=== PATIENT | female | born 1960 | race Caucasian/White ===

== ENCOUNTER 2020-01-21 19:01 | Emergency (ER) | payer OTHER ==
[~2020-01-21] VITALS: Ht 157.5 cm; Wt 68.0 kg
[2020-01-21] MEDS ORDERED: PROCHLORPERAZINE EDISYLATE 10 MG/2 ML VIAL ONE (19:27)
[2020-01-21] MEDS ORDERED: MECLIZINE HCL 25 MG TABLET ONE (19:28)
[2020-01-21 19:29] LABS: BASOPHILS % (AUTO) 0.4 % (0.0-2.0); EOSINOPHILS % (AUTO) 2.1 % (0.0-6.0); HEMATOCRIT 42 % (33-45); HEMOGLOBIN 13.9 g/dL (11.5-14.8); LYMPHOCYTES % (AUTO) 21.8 % (20.0-44.0); MEAN CORPUSCULAR HGB CONC 33 g/dl (31.0-36.0); MEAN CORPUSCULAR VOLUME 88 fL (82-100); MONOCYTES # (AUTO) 0.6 /CMM (0.1-1.30); NEUTROPHILS # (AUTO) 6.3 /CMM (1.8-8.9); NEUTROPHILS % (AUTO) 68.7 % (43.0-81.0); PLATELET COUNT (AUTO) 397 /CMM (150-450); RED BLOOD CELL COUNT(AUTO) 4.79 MIL/uL (4.0-5.2); WHITE BLOOD COUNT (AUTO) 9.2 K/uL (4.3-11.0)
[2020-01-21] MEDS ORDERED: MECLIZINE HCL 12.5 MG TABLET PO ONE (19:30)
[2020-01-21] MEDS ORDERED: IV NS 0.9% 1,000 ML BAG IV ONE (19:30)
[2020-01-21] MEDS ORDERED: PROCHLORPERAZINE EDISYLATE 10 MG/2 ML VIAL IVP ONE (19:30)
[2020-01-21 19:34] VITALS: BP 179/101
--- NOTE | 2020-01-21 19:34 | NUR ---
[id number] HOME C/O DIZZINESS X 4 HOURS ALSO C/O NAUSEA. ZOFRAN 4MG IVP GIVEN TO ER BED 4 ORDERS RECEIVED AND CARRIED OUT.
[2020-01-21 19:36] LABS: CALCIUM, SERUM 9.1 mg/dL (8.5-10.1); CREATININE 0.8 mg/dL (0.6-1.3); POTASSIUM 3.2 mmol/L (3.5-5.1)
--- NOTE | 2020-01-21 19:38 | NUR ---
PT TAKEN TO CT
--- NOTE | 2020-01-21 19:44 | NUR ---
PT BACK FROM CT
--- NOTE | 2020-01-21 20:38 | NUR ---
DR PARSONS AT BED SIDE
[2020-01-21] MEDS ORDERED: diphenhydrAMINE HCL 50 MG/ML VIAL IV ONE (21:00)
[2020-01-21] MEDS ORDERED: diphenhydrAMINE HCL 50 MG/ML VIAL ONE (21:14)
--- NOTE | 2020-01-21 21:46 | NUR ---
COVID RESULT: NEG
--- NOTE | 2020-01-21 22:11 | NUR ---
[facility] b [phone]
[2020-01-21 22:13] LABS: APPEARANCE,URINE CLEAR (CLEAR); BILIRUBIN,URINE NEGATIVE (NEGATIVE); BLOOD, URINE NEGATIVE Ery/uL (NEGATIVE); COLOR,URINE YELLOW (YELLOW); KETONES,URINE NEGATIVE (NEGATIVE); LEUKOCYTE ESTERASE ,URINE NEGATIVE (NEGATIVE); NITRITE, URINE NEGATIVE (NEGATIVE); PH,URINE 7.5 (5.0-8.0); PROTEIN,URINE NEGATIVE (NEGATIVE); UGLUCOSE NEGATIVE (NEGATIVE); UROBILINOGEN,URINE 0.2 EU/dL (0.2)
--- NOTE | 2020-01-21 22:26 | NUR ---
[facility] ETA [phone]
--- NOTE | 2020-01-21 22:46 | NUR ---
[id number]
--- NOTE | 2020-01-21 22:49 | NUR ---
CALLED IN REPORT TO CARMELO BROWN AT [facility]
--- NOTE | 2020-01-22 00:13 | NUR ---
PT WAS ASSISTED W/ A BED VALIENTE W/ GOOD OUTPUT
== END 2020-01-22 00:37 | disposition short-term general hospital (02) ==
LOC: ER 19:14
DX: R42 Dizziness and giddiness (principal); R11.0 Nausea; H55.00 Unspecified nystagmus; Z20.828 Contact with and (suspected) exposure to other viral communicable diseases
CPT/HCPCS: 36415; 70450; 80048; 81001; 85025; 87426; 96361; 96374; 96375; 99285; C9803; J0780; J1200; J7030; J8597; 81000-TC